=== PATIENT | male | born 1950 | race Two or more races ===

== ENCOUNTER 2020-08-07 11:14 | Inpatient (IN) | payer MEDICARE, MEDICAID ==
[~2020-08-07] VITALS: Ht 177.8 cm; Wt 88.7 kg
[2020-08-07] MEDS ORDERED: methylPREDNISolone SOD SUCC 125 MG/2 ML VL ONE (12:15)
[2020-08-07] MEDS ORDERED: methylPREDNISolone SOD SUCC 125 MG/2 ML VL IV ONE (12:30)
[2020-08-07 13:14] LABS: Hematocrit 39.7 % (41.0-53.0); Mean Corpuscular Hemoglobin 27.1 pg (28.0-32.0); Mean Corpuscular Hgb Conc. 32.7 g/dL (32.0-36.0); Platelet Count (auto) 207 10^3/uL (140-450); Red Blood Cells 4.78 10^6/uL (4.5-5.90); White Blood Cell 16.2 10^3/uL (4.4-10.8)
[2020-08-07] MEDS ORDERED: ALBUTEROL SULF 2.5 MG/0.5ML(0.5%) NEB SOLN NEB ONE ×2 (13:15→16:30)
[2020-08-07] MEDS ORDERED: IPRATROPIUM BROM 0.5 MG/2.5ML INH SOL NEB ONE ×2 (13:15→16:30)
[2020-08-07 13:20] LABS: Basophils % (manual) 0 (0.0-2.0); Blast Cells 0; Eosinophils % (manual) 0 (0-7); Myelocytes % 0; Promyelocytes % 0; Reactive Lymphocytes 0
[2020-08-07 13:30] LABS: Albumin 3.9 g/dL (3.4-5.0); Anion Gap 6 (5-15); Blood Urea Nitrogen 16 mg/dL (7-18); Calcium 8.6 mg/dL (8.5-10.1); Carbon Dioxide 21 mmol/L (21-32); Chloride 112 mmol/L (98-107); Glucose 124 mg/dL (74-106); Potassium 3.6 mmol/L (3.5-5.1); Sodium 139 mmol/L (136-145)
[2020-08-07 13:35] LABS: Alanine Aminotransferase 28 U/L (16-61); Alkaline Phosphatase 142 U/L (45-117); Aspartate Aminotransferase 21 U/L (15-37); BUN/Creatinine Ratio 10.4; Bilirubin, Total 0.4 mg/dL (0.2-1.0); GFR African American 58 mL/min; GFR Non-African American 48 mL/min; Total Protein 7.9 g/dL (6.4-8.2)
[2020-08-07 13:45] LABS: INR 1.02 (0.9-1.15); Partial Thromboplastin Time 24.9 sec (23.0-31.2)
[2020-08-07 14:19] LABS: Band Neutrophils % (manual) 14; Lymphocytes % (manual) 2 (10.0-50.0); Metamyelocytes % 3; Monocytes % (manual) 8 (0-12)
[2020-08-07] MEDS ORDERED: FUROSEMIDE 20 MG/2 ML VIAL IV ONE (14:30)
[2020-08-07] MEDS ORDERED: levoFLOXacin 750MG 150 ML IV ONE (14:30)
[2020-08-07] MEDS ORDERED: NITROGLYCERIN 0.4 MG SL TAB SL PRN (16:30)
[2020-08-07] MEDS ORDERED: ACETAMINOPHEN 500 MG TAB PO PRN (16:30)
[2020-08-07] MEDS ORDERED: MORPHINE SULF INJ 2 MG/ML SYRINGE 1ML IV PRN (16:30)
[2020-08-07] MEDS ORDERED: DEXTROSE (50%) 50ML SYRG IV PRN (16:30)
[2020-08-07] MEDS: ACCU-CHEK COMFORT CURVE STRIP VI SCH ×2 (17:00→22:29)
[2020-08-07 17:46] LABS: CRP High Sensitivity 2.2 mg/dL (< 0.3)
[2020-08-07] MEDS: BUDESONIDE (INHALATION) 0.5 MG/2 ML NEB NEB SCH (18:19)
[2020-08-07] MEDS: ALBUTEROL SULF 2.5 MG/0.5ML(0.5%) NEB SOLN NEB SCH (18:19)
[2020-08-07] MEDS: IPRATROPIUM BROM 0.5 MG/2.5ML INH SOL NEB SCH (18:19)
[2020-08-07] MEDS: ONDANSETRON HCL 4 MG/2 ML VIAL IV PRN (18:30)
[2020-08-07] MEDS: MORPHINE SULF INJ 2 MG/ML SYRINGE 1ML IV PRN (18:30)
[2020-08-07 18:32] LABS: Urine Bacteria NONE SEEN /hpf (None Seen); Urine Blood Negative /uL (Negative); Urine Mucus FEW (None Seen); Urine Specific Gravity 1.016 (1.001-1.035); Urine WBC 1 /hpf (0 - 3)
[2020-08-07] MEDS: SODIUM CHLORIDE 0.9% 1,000 ML IV SCH (18:57)
[2020-08-07] MEDS: InsuLIN REG 1unit/0.01ml Soln (100units/ml) SC SCH ×2 (18:59→22:29)
[2020-08-07] MEDS: HYDROcodone-ACET 5/325MG TAB PO PRN (20:10)
[2020-08-07] MEDS: methylPREDNISolone SOD SUCC 40 MG/ML VL IV SCH (22:30)
[2020-08-07 23:35] VITALS: BP 106/54
[2020-08-08] MEDS: MORPHINE SULF INJ 2 MG/ML SYRINGE 1ML IV PRN ×4 (01:45→23:08)
[2020-08-08 05:12] LABS: Basophils # (auto) 0 10 ^3/uL (0-0.2); Eosinophils # (auto) 0 10 ^3/uL (0-0.8); Hematocrit 37.2 % (41.0-53.0); Hemoglobin 11.6 g/dL (13.5-17.5); Lymphocytes # (auto) 0.5 10 ^3/uL (0.4-5.4); Lymphocytes % (auto) 4.1 % (10.0-50.0); Mean Corpuscular Hemoglobin 26.4 pg (28.0-32.0); Mean Corpuscular Hgb Conc. 31.1 g/dL (32.0-36.0); Mean Corpuscular Volume 84.9 fL (80.0-100.0); Monocytes # (auto) 0.2 10 ^3/uL (0-1.3); Monocytes % (auto) 1.7 % (0.0-12.0); Neutrophils # (auto) 12.6 10 ^3/uL (1.6-8.6); Neutrophils % (auto) 94.2 % (37.0-80.0); Platelet Count (auto) 173 10^3/uL (140-450); Red Blood Cells 4.38 10^6/uL (4.5-5.90); Red Cell Distribution Width 15.2 % (11.8-14.3); White Blood Cell 13.4 10^3/uL (4.4-10.8)
[2020-08-08 05:29] LABS: BUN/Creatinine Ratio 14.3; Calcium 8.3 mg/dL (8.5-10.1); Potassium 4.6 mmol/L (3.5-5.1)
[2020-08-08] MEDS: ALBUTEROL SULF 2.5 MG/0.5ML(0.5%) NEB SOLN NEB SCH ×3 (06:50→18:52)
[2020-08-08] MEDS: IPRATROPIUM BROM 0.5 MG/2.5ML INH SOL NEB SCH ×3 (06:56→18:00)
[2020-08-08] MEDS: BUDESONIDE (INHALATION) 0.5 MG/2 ML NEB NEB SCH ×2 (06:56→22:00)
[2020-08-08] MEDS: InsuLIN REG 1unit/0.01ml Soln (100units/ml) SC SCH ×4 (07:01→23:27)
[2020-08-08] MEDS: ACCU-CHEK COMFORT CURVE STRIP VI SCH ×4 (07:02→23:27)
[2020-08-08] MEDS: ONDANSETRON HCL 4 MG/2 ML VIAL IV PRN (09:34)
[2020-08-08] MEDS: cefTRIAXone 1GM/50ML D5W 50 ML IV SCH (09:34)
[2020-08-08] MEDS: SODIUM CHLORIDE 0.9% 1,000 ML IV SCH (09:43)
[2020-08-08] MEDS ORDERED: FAMOTIDINE 20 MG TAB PO SCH (10:00)
[2020-08-08] MEDS: ZINC SULFATE 220mg CAP or TAB PO SCH (10:09)
[2020-08-08] MEDS: CHOLECALCIFEROL (VITD3) 2,000 UNIT CAP PO SCH (10:09)
[2020-08-08] MEDS: AZITHROMYCIN 500MG/ 250ML 250 ML IV SCH (10:10)
[2020-08-08] MEDS: ENOXAPARIN SOD 40 MG/0.4 ML SYRINGE SC SCH (10:10)
[2020-08-08] MEDS: methylPREDNISolone SOD SUCC 40 MG/ML VL IV SCH ×3 (10:18→23:26)
[2020-08-08] MEDS: ASCORBIC ACID 1,000 MG TAB PO SCH (10:18)
[2020-08-08] MEDS ORDERED: diphenhdrAMINE HCL 50 MG/1 ML VL IV ONE (18:45)
[2020-08-09] MEDS ORDERED: LEVALBUTEROL HCL 1.25 MG/3 ML NEB NEB SCH
[2020-08-09] MEDS: SODIUM CHLORIDE 0.9% 1,000 ML IV SCH ×2 (01:50→16:58)
[2020-08-09] MEDS: IPRATROPIUM BROM 0.5 MG/2.5ML INH SOL NEB SCH ×3 (04:34→18:49)
[2020-08-09] MEDS: LEVALBUTEROL HCL 1.25 MG/3 ML NEB NEB SCH ×3 (04:34→18:50)
[2020-08-09] MEDS: BUDESONIDE (INHALATION) 0.5 MG/2 ML NEB NEB SCH (05:44)
[2020-08-09] MEDS: ACCU-CHEK COMFORT CURVE STRIP VI SCH ×4 (07:02→21:45)
[2020-08-09] MEDS: InsuLIN REG 1unit/0.01ml Soln (100units/ml) SC SCH ×4 (07:03→21:45)
[2020-08-09] MEDS ORDERED: cefTRIAXone 1GM/50ML D5W 50 ML IV SCH (09:00)
[2020-08-09] MEDS: cefTRIAXone 1GM/50ML D5W 50 ML IV SCH (10:15)
[2020-08-09] MEDS: methylPREDNISolone SOD SUCC 40 MG/ML VL IV SCH ×2 (10:16→21:45)
[2020-08-09] MEDS: ZINC SULFATE 220mg CAP or TAB PO SCH (11:54)
[2020-08-09] MEDS: AZITHROMYCIN 500MG/ 250ML 250 ML IV SCH (11:54)
[2020-08-09] MEDS: FAMOTIDINE 20 MG TAB PO SCH ×2 (11:55→21:45)
[2020-08-09] MEDS: ENOXAPARIN SOD 40 MG/0.4 ML SYRINGE SC SCH (11:55)
[2020-08-09] MEDS: CHOLECALCIFEROL (VITD3) 2,000 UNIT CAP PO SCH (11:55)
[2020-08-09] MEDS: ASCORBIC ACID 1,000 MG TAB PO SCH (11:55)
[2020-08-09 15:00] VITALS: BP 127/59
--- NOTE | 2020-08-09 15:00 | NUR ---
Telemetry admit from ER MARTINEZMAGGIE Morgan admitted to Telemetry unit after SBAR received. Patient oriented to Chikis Kaufman RN, unit, room, bed, and unit policies regarding patient care and visiting hours. Patient now on continuous telemetry monitoring, tele box # [id number] and telemetry reading on arrival to unit is 68 SR. Patient placed on bedside oxygen at 2 LPM, weighed by bed scale and encouraged to call if he needs something. All questions and concerns addressed, patient verbalized understanding. Note: Patient awake, alert, oriented x4. Patient has moist coughing noted. Urinal at bedside.
[2020-08-09] MEDS: MORPHINE SULF INJ 2 MG/ML SYRINGE 1ML IV PRN (16:53)
--- NOTE | 2020-08-09 19:30 | NUR ---
Opening Shift Note Assumed care of patient, awake and alert. No S/S of distress/SOB or pain. Insructed on POC and to callfor assist PRN, will continue to monitor for changes Q1hr and PRN. Fall and safety precautions in place. Call light within reach.
[2020-08-09 22:00] VITALS: BP 111/41
[2020-08-09] MEDS ORDERED: PREG50CA PO (22:24)
[2020-08-09] MEDS ORDERED: METO25TA5 PO (22:24)
[2020-08-09] MEDS ORDERED: GLIP10TA9 PO (22:24)
[2020-08-09] MEDS ORDERED: ROPI2TAB4 PO (22:24)
[2020-08-09] MEDS ORDERED: GABA300C10 PO (22:24)
[2020-08-09] MEDS ORDERED: SERT-377 PO (22:24)
[2020-08-09] MEDS ORDERED: SIMV-8 PO (22:24)
[2020-08-09] MEDS ORDERED: TOPI200T43 PO (22:24)
[2020-08-09] MEDS ORDERED: CALCTAB83 PO (22:24)
[2020-08-09] MEDS ORDERED: ZOLP5TAB5 PO (22:24)
[2020-08-09] MEDS ORDERED: TRAZ100T3 PO (22:24)
[2020-08-09] MEDS ORDERED: PRA1C PO (22:24)
[2020-08-09] MEDS ORDERED: QUET300T23 PO (22:24)
[2020-08-09] MEDS ORDERED: METH750T3 PO (22:24)
[2020-08-09] MEDS ORDERED: B-CO1TAB32 PO (22:24)
[2020-08-09] MEDS ORDERED: PRAZOSIN HCL 1 MG CAP PO SCH (22:45)
[2020-08-09] MEDS: GABAPENTIN 300 MG CAP PO SCH (23:28)
--- NOTE | 2020-08-10 | NUR ---
RAPID INFLUENZA Rapid influenza swab obtained and walked to lab. Patient tolerated well
[2020-08-10] MEDS: BUDESONIDE (INHALATION) 0.5 MG/2 ML NEB NEB SCH ×2 (00:16→06:38)
--- NOTE | 2020-08-10 01:00 | NUR ---
IV insertion IV access obtained, via clean sterile technique by inserting 22 gauge catheter at right hand after several attempts. IV secured properly. No trauma to site. Patient tolerated well. IV removal IV DC'd with clean sterile technique, catheter fully intact. Pressure dressing applied to site. Patient tolerated well. NOTE: RAC 20g removed due to catheter being kinked
[2020-08-10] MEDS: MORPHINE SULF INJ 2 MG/ML SYRINGE 1ML IV PRN (02:57)
[2020-08-10 05:00] VITALS: BP 94/42
[2020-08-10] MEDS: InsuLIN REG 1unit/0.01ml Soln (100units/ml) SC SCH ×2 (05:45→11:30)
[2020-08-10] MEDS: GABAPENTIN 300 MG CAP PO SCH (05:46)
[2020-08-10] MEDS: ACCU-CHEK COMFORT CURVE STRIP VI SCH ×2 (05:46→11:30)
[2020-08-10] MEDS: LEVALBUTEROL HCL 1.25 MG/3 ML NEB NEB SCH (06:38)
[2020-08-10] MEDS: IPRATROPIUM BROM 0.5 MG/2.5ML INH SOL NEB SCH (06:38)
--- NOTE | 2020-08-10 07:30 | NUR ---
Opening Shift Note Assumed care of patient from NOC RN, patient is awake and alert. No S/S of distress/SOB or pain. Instructed on POC and to call for assist PRN, will continue to monitor for changes Q1hr and PRN. Fall and safety precautions in place. Call light within reach.
[2020-08-10 08:00] VITALS: BP 137/69
--- NOTE | 2020-08-10 08:00 | NUR ---
MD Zarate at bedside, o2 via N/C removed from patient for 10 min, after 10 min o2 sat is 97% on RA.
[2020-08-10] MEDS: cefTRIAXone 1GM/50ML D5W 50 ML IV SCH (09:00)
[2020-08-10 09:04] VITALS: BP 137/69
[2020-08-10 09:08] VITALS: BP 137/69
[2020-08-10] MEDS: methylPREDNISolone SOD SUCC 40 MG/ML VL IV SCH (09:42)
[2020-08-10] MEDS: ZINC SULFATE 220mg CAP or TAB PO SCH (09:43)
[2020-08-10] MEDS: HYDROcodone-ACET 5/325MG TAB PO PRN (09:43)
[2020-08-10] MEDS: ASCORBIC ACID 1,000 MG TAB PO SCH (09:44)
[2020-08-10] MEDS: CHOLECALCIFEROL (VITD3) 2,000 UNIT CAP PO SCH (09:44)
[2020-08-10] MEDS: ENOXAPARIN SOD 40 MG/0.4 ML SYRINGE SC SCH (09:44)
[2020-08-10] MEDS: FAMOTIDINE 20 MG TAB PO SCH (09:44)
[2020-08-10] MEDS: AZITHROMYCIN 500MG/ 250ML 250 ML IV SCH (10:00)
[2020-08-10] MEDS: SODIUM CHLORIDE 0.9% 1,000 ML IV SCH (11:10)
--- NOTE | 2020-08-10 11:35 | NUR ---
DISCHARGED Discharge instructions given as ordered. Encourage to follow up with PMD as instructed. All questions and concerns addressed. Patient verbalized understanding. Medication reconciliation form completed and copy given to patient. Home medications held in Pharmacy returned to patient, IV removed with catheter intact, pressure dressing applied, Telemetry unit returned to ICU. Patient taken to vehicle via wheelchair with all personal belongings, accompanied by staff and family member. No distress noted at time of departure.
[2020-08-10] MEDS ORDERED: QUEtiapine FUMARATE 100 MG TAB PO SCH (22:00)
== END 2020-08-10 11:35 | disposition home or self-care (01) | DRG 871 ==
LOC: EDBD 11:14 → ER 11:14 → TELE 11:15 → TELE-CENTR 08-09 15:18
PROVIDERS: ADMIT Nurse Practitioner Acute Care; ATTEND Family Medicine
DX: A41.9 Sepsis, unspecified organism (principal); J96.00 Acute respiratory failure, unspecified whether with hypoxia or hypercapnia; J18.9 Pneumonia, unspecified organism; J44.1 Chronic obstructive pulmonary disease with (acute) exacerbation; E87.3 Alkalosis; J44.0 Chronic obstructive pulmonary disease with (acute) lower respiratory infection; J98.11 Atelectasis; N18.30 Chronic kidney disease, stage 3 unspecified; E11.22 Type 2 diabetes mellitus with diabetic chronic kidney disease; M19.90 Unspecified osteoarthritis, unspecified site; Z96.642 Presence of left artificial hip joint; Z20.828 Contact with and (suspected) exposure to other viral communicable diseases; Z79.84 Long term (current) use of oral hypoglycemic drugs; Z80.1 Family history of malignant neoplasm of trachea, bronchus and lung; Z87.891 Personal history of nicotine dependence
CPT/HCPCS: 36415; 36600; 71045; 71250; 78582; 80048; 80053; 81001; 82728; 82805; 82962; 83036; 83615; 83880; 84443; 84484; 85007; 85025; 85027; 85379; 85610; 85730; 86141; 87040; 87426; 87804; 93970; 94640; 96365; 96375; G0378; J0696; J1815; J1956; J2405